=== PATIENT | female | born 1975 | race American Indian/Alaskan Native ===

== ENCOUNTER 2016-08-26 23:35 | Emergency (ER) | payer MEDICARE, OTHER ==
[~2016-08-26] VITALS: Ht 170.2 cm; Wt 71.2 kg
[~2016-08-26 23:35] MED LIST: ACETAMINOPHEN325 M1 PO; ASPIR 8181 MG PO; ATIVAN1 MG PO; ATIVAN2 MG PO; BENZTROPINE MESY1 MG PO; CALCIUM ACETAT667 MG PO; CRUTCH1 EACH MISC; CYMBALTA30 MG PO; CYMBALTA60 MG PO; DIALYSIS; DIPHENHYDRAMINE25 MG PO; DULOXETINE HCL60 MG PO; EXTRA STRENGTH500 MG PO; FAMOTIDINE20 MG PO; ICY HOT BALM99.2 GM TOP; LAMICTAL150 MG PO; LAMOTRIGINE25 MG PO; LISINOPRIL5 MG; LORAZEPAM1 MG PO; METOCLOPRAMIDE10 MG PO; METOPROLOL SUCC25 MG; METOPROLOL SUCC25 MG PO; NEPHRO-VITE RX1 TAB PO; NICOTINE GUM2 MG; NICOTINE PATCH1 EA; OMEPRAZOLE20 MG PO; PEPCID20 MG PO; PERPHENAZINE4 MG PO; PERPHENAZINE8 MG PO; PHOSLO667 MG PO; POLYETHYLENE GL17 GM PO; PREDNISONE50 MG PO; PROAIR HFA8.5 GM INH; PROMETHAZINE HC25 M1 PO; QVAR7.3 G1 INH; RISPERDAL1 MG PO; RISPERDAL3 MG PO; RISPERDAL4 MG PO; SENSIPAR30 MG PO; SPIRONOLACTONE50 MG; SUCRALFATE1 GM PO; TRAZODONE HCL100 MG PO; TRAZODONE HCL150 MG PO; VITAMIN C250 MG PO; VITAMIN D2000 UNIT PO; VITAMIN D31000 UNIT PO; VOL-CARE RX TA1 EACH PO; ZOFRAN4 MG PO
[2016-08-26] MEDS ORDERED: SENSIPAR30 MG PO (23:55)
== END 2016-08-27 01:40 | disposition home or self-care (01) ==
LOC: ED 23:35
DX: T49.6X1A Poisoning by otorhinolaryngological drugs and preparations, accidental (unintentional), initial encounter (principal); I25.2 Old myocardial infarction; J45.909 Unspecified asthma, uncomplicated; I13.2 Hypertensive heart and chronic kidney disease with heart failure and with stage 5 chronic kidney disease, or end stage renal disease; N18.6 End stage renal disease; K21.9 Gastro-esophageal reflux disease without esophagitis; F25.9 Schizoaffective disorder, unspecified; Z87.891 Personal history of nicotine dependence; Z90.79 Acquired absence of other genital organ(s); Z90.711 Acquired absence of uterus with remaining cervical stump; Z88.0 Allergy status to penicillin; Z88.1 Allergy status to other antibiotic agents; Z91.018 Allergy to other foods; Z88.8 Allergy status to other drugs, medicaments and biological substances; Z79.82 Long term (current) use of aspirin; Z79.899 Other long term (current) drug therapy; Z99.2 Dependence on renal dialysis
CPT/HCPCS: 99282

== ENCOUNTER 2016-09-23 19:11 | Emergency (ER) | payer MEDICARE, OTHER ==
[~2016-09-23] VITALS: Ht 170.2 cm; Wt 71.4 kg
[2016-09-23] MEDS ORDERED: SENSIPAR60 MG PO (19:32)
--- NOTE | 2016-09-23 20:05 | EKG ---
[facility] [address] [facility] [place] [address] Signed Normal sinus rhythm Normal ECG When compared with ECG of 26-APR-2016 09:23, No significant change was found Confirmed by JARVIS SINGER MD ([id number] on 09/23/2016 8:05:03 PM Electronically Signed By: JARVIS SINGER MD 09/23/162004 PATIENT NAME: MARNI JACKSON Electrocardiogram DATE OF : 77 PHYSICIAN: JARVIS SINGER MD REPORT #: [id number] REPORT IS CONFIDENTIAL AND NOT TO BE RELEASED WITHOUT AUTHORIZATION
== END 2016-09-23 21:47 | disposition home or self-care (01) ==
LOC: ED 19:11
DX: S16.1XXA Strain of muscle, fascia and tendon at neck level, initial encounter (principal); I13.2 Hypertensive heart and chronic kidney disease with heart failure and with stage 5 chronic kidney disease, or end stage renal disease; N18.6 End stage renal disease; Z99.2 Dependence on renal dialysis; I25.2 Old myocardial infarction; I42.9 Cardiomyopathy, unspecified; J45.909 Unspecified asthma, uncomplicated; F25.9 Schizoaffective disorder, unspecified; Z85.41 Personal history of malignant neoplasm of cervix uteri; Z99.81 Dependence on supplemental oxygen; Z91.013 Allergy to seafood; Z88.0 Allergy status to penicillin; Z88.1 Allergy status to other antibiotic agents; Z88.8 Allergy status to other drugs, medicaments and biological substances; Z90.711 Acquired absence of uterus with remaining cervical stump; Z79.899 Other long term (current) drug therapy; Z79.82 Long term (current) use of aspirin; X58.XXXA Exposure to other specified factors, initial encounter
CPT/HCPCS: 71010; 72040; 93005; 93010; 99283

== ENCOUNTER 2016-11-14 08:49 | Emergency (ER) | payer MEDICARE, OTHER ==
[~2016-11-14] VITALS: Ht 170.2 cm; Wt 73.9 kg
[~2016-11-14 08:49] MED LIST changes: +SENSIPAR60 MG PO
== END 2016-11-14 11:20 | disposition home or self-care (01) ==
LOC: ED 08:49
PROC: 0HQFXZZ Repair Right Hand Skin, External Approach (ICD-10-PCS; principal; 2016-11-14)
DX: S61.210A Laceration without foreign body of right index finger without damage to nail, initial encounter (principal); I25.2 Old myocardial infarction; N18.6 End stage renal disease; I13.2 Hypertensive heart and chronic kidney disease with heart failure and with stage 5 chronic kidney disease, or end stage renal disease; K21.9 Gastro-esophageal reflux disease without esophagitis; I50.9 Heart failure, unspecified; I42.9 Cardiomyopathy, unspecified; Z99.2 Dependence on renal dialysis; Z85.41 Personal history of malignant neoplasm of cervix uteri; F17.200 Nicotine dependence, unspecified, uncomplicated; Z91.013 Allergy to seafood; Z88.1 Allergy status to other antibiotic agents; Z88.0 Allergy status to penicillin; Z90.712 Acquired absence of cervix with remaining uterus; Z79.899 Other long term (current) drug therapy; W23.0XXA Caught, crushed, jammed, or pinched between moving objects, initial encounter
CPT/HCPCS: 12001; 73140; 90471; 90715; 99283